=== PATIENT | female | born 1975 | race Hispanic/Latino ===

== ENCOUNTER → 2017-12-13 | Outpatient (CLI) | payer OTHER | LOC: M RAD 14:42 | DX: Z12.31 Encounter for screening mammogram for malignant neoplasm of breast (principal) ==

== ENCOUNTER 2019-04-23 13:00 | Emergency (ER) | payer OTHER ==
[~2019-04-23] VITALS: Ht 167.6 cm; Wt 93.9 kg
[2019-04-23] MEDS ORDERED: LEVO175T2 (13:14)
[2019-04-23] MEDS ORDERED: HYDR1CRE9 (13:14)
[2019-04-23] MEDS ORDERED: [UNRECOGNIZED DRUG - REMARK] (13:14)
[2019-04-23] MEDS ORDERED: ACET1TAB55 PO (13:14)
[2019-04-23] MEDS ORDERED: FLUTISP (13:14)
[2019-04-23] MEDS ORDERED: NS 1,000 ML IV ONE (14:15)
[2019-04-23] MEDS ORDERED: ONDANSETRON 4MG/2ML VIAL (J2405) IV ONE (14:15)
[2019-04-23] MEDS ORDERED: KETOROLAC 30 MG/ML VIAL (J1885) IV ONE (14:15)
[2019-04-23 14:41] LABS: BASO # 0.1 10^3/uL (0.0-0.2); BASO % 0.6 % (0.0-1.0); EOS # 0.1 10^3/uL (0.0-0.50); EOS % 1.1 % (0.0-3.0); HEMOGLOBIN 7.4 g/dl (12.0-15.5); LYMPH # 2.2 10^3/uL (1.5-4.5); LYMPH % 21.6 % (24.0-44.0); MEAN CORPUSCULAR HEMOGLOBIN 16.4 pg (27.0-33.0); MEAN CORPUSCULAR HGB CONC 27.4 g/dl (32.0-36.5); MEAN CORPUSCULAR VOLUME 59.7 fl (80.0-96.0); MONO # 0.8 10^3/uL (0.0-0.8); MONO % 7.4 % (0.0-5.0); NEUTROPHILS # 7.2 10^3/uL (1.8-7.7); NEUTROPHILS % 68.9 % (36.0-66.0); PLATELET COUNT, AUTOMATED 543 10^3/uL (150-450); RED BLOOD COUNT 4.52 10^6/uL (4.00-5.40); WHITE BLOOD COUNT 10.4 10^3/uL (4.0-10.0)
[2019-04-23 15:06] LABS: ALBUMIN 3.5 GM/DL (3.2-5.2); ALT/SGPT 17 U/L (12-78); BILIRUBIN,DIRECT 0.2 MG/DL (0.0-0.2); BILIRUBIN,TOTAL 0.5 MG/DL (0.2-1.0); BLOOD UREA NITROGEN 8 MG/DL (7-18); CALCIUM LEVEL 8.7 MG/DL (8.5-10.1); CARBON DIOXIDE LEVEL 24 MEQ/L (21-32); CHLORIDE LEVEL 109 MEQ/L (98-107); CREATININE FOR GFR 0.79 MG/DL (0.55-1.30); GLOMERULAR FILTRATION RATE > 60.0 (>58); GLUCOSE, FASTING 92 MG/DL (70-100); LIPASE 154 U/L (73-393); POTASSIUM SERUM 3.7 MEQ/L (3.5-5.1); SODIUM LEVEL 140 MEQ/L (136-145); TOTAL PROTEIN 7.8 GM/DL (6.4-8.2)
[2019-04-23] MEDS ORDERED: ISOVUE-370 76% 100ML VIAL (Q9967) As Ordered ONE (15:09)
--- NOTE | 2019-04-23 15:40 | REP ---
Head CT without contrast: History: Sudden onset headache. Comparison study: No comparison study. CT findings: Bone window settings demonstrate an intact bony calvarium. There is no evidence of skull fracture or incidental bony calvarial lesion. The visualized paranasal sinuses appear clear. No intraorbital abnormality is seen. On soft tissue window setting images; the lateral, third, and fourth ventricles are normal in size and position. Jackson-white differentiation pattern is normal above and below the tentorium. There are is no evidence of intracranial hemorrhage. No mass, edema, infarction, or midline shift is seen. No extra-axial fluid collection is appreciated. Impression: Negative noncontrast head CT. Electronically Signed by Sai Dela Cruz MD 04/23/2019 03:38 P
--- NOTE | 2019-04-23 15:48 | REP ---
CT of the abdomen and pelvis with IV contrast, without bowel contrast: There are no comparisons. The visualized lung pal are unremarkable. The hepatic parenchyma, gallbladder, pancreas and spleen are normal size and unremarkable. The adrenals are unremarkable. The kidneys are unremarkable. The abdominal aorta is unremarkable. There is no periaortic adenopathy or mass. The bowel and mesentery are unremarkable. Pelvis: The appendix is unremarkable. There is a right adnexal 1.8 cm follicle. Left adnexa is unremarkable. The The uterus and bladder are unremarkable. There is no adenopathy or ascites. Impression: There is a 1.8 cm right adnexal follicle. Otherwise, essentially negative CT of the abdomen and pelvis. Electronically Signed by Ric Woods MD 04/23/2019 03:39 P
[2019-04-23 17:07] LABS: IRON (FE) 10 UG/DL (50-170); PERCENT SATURATION 2.1 % (13.2-45.0); TOTAL IRON BINDING CAPACITY 473 UG/DL (250-450)
[2019-04-23] MEDS ORDERED: FOLITAB10 PO (17:27)
[2019-04-23] MEDS ORDERED: CIPR-249 PO (17:28)
[2019-04-23 17:47] VITALS: BP 111/59
== END 2019-04-23 17:50 | disposition home or self-care (01) ==
LOC: M ED 13:00
DX: N30.00 Acute cystitis without hematuria (principal); N83.00 Follicular cyst of ovary, unspecified side; D50.9 Iron deficiency anemia, unspecified; R19.7 Diarrhea, unspecified; E03.9 Hypothyroidism, unspecified; Z79.899 Other long term (current) drug therapy
CPT/HCPCS: 70450; 74177; 80048; 80076; 81001; 83550; 83690; 84702; 85025; 87088; 87186; 96374; 96375; 99284; J1885; J2405; Q9967

== ENCOUNTER → 2019-09-25 | Outpatient (CLI) | payer OTHER ==
[~2019-09-25] MED LIST: ACET1TAB55 PO; CIPR-249 PO; FERR324T2 PO; FLUTISP; FOLI0.4T PO; FOLITAB10 PO; HYDR1CRE9; IBUP80TA PO; LEVO175T2 PO; PERCOCET PO; VITA-158 PO; [UNRECOGNIZED DRUG - REMARK]
[2019-09-25 12:22] LABS: HEMATOCRIT 32.7 % (36.0-47.0); HEMOGLOBIN 9.6 g/dl (12.0-15.5); MEAN CORPUSCULAR HEMOGLOBIN 19.8 pg (27.0-33.0); MEAN CORPUSCULAR HGB CONC 29.4 g/dl (32.0-36.5); MEAN CORPUSCULAR VOLUME 67.4 fl (80.0-96.0); PLATELET COUNT, AUTOMATED 480 10^3/uL (150-450); RED BLOOD COUNT 4.85 10^6/uL (4.00-5.40); WHITE BLOOD COUNT 6.1 10^3/uL (4.0-10.0)
== END ==
LOC: M LAB 10:53
PROVIDERS: ATTEND Obstetrics & Gynecology
DX: Z01.818 Encounter for other preprocedural examination (principal); E03.9 Hypothyroidism, unspecified; D64.9 Anemia, unspecified

== ENCOUNTER 2019-09-29 05:50 | Inpatient (IN) | payer OTHER ==
[2019-09-29] VITALS (7 sets, daily range): BP systolic 111–137; BP diastolic 54–66
[~2019-09-29] VITALS: Ht 165.1 cm; Wt 94.3 kg
[~2019-09-29 05:50] MED LIST changes: -IBUP80TA PO; -PERCOCET PO
[2019-09-29] MEDS ORDERED: ceFAZolin SOD 2 GM in IV 1 EA IV ONE (06:00)
[2019-09-29] MEDS ORDERED: LIDOCAINE 1% MDV 20ML VIAL SQ PRN (06:00)
[2019-09-29] MEDS ORDERED: LR 1,000 ML IV ONE (06:00)
[2019-09-29 06:19] LABS: HEMATOCRIT 35.2 % (36.0-47.0); HEMOGLOBIN 9.9 g/dl (12.0-15.5); MEAN CORPUSCULAR HEMOGLOBIN 19.2 pg (27.0-33.0); MEAN CORPUSCULAR HGB CONC 28.1 g/dl (32.0-36.5); MEAN CORPUSCULAR VOLUME 68.3 fl (80.0-96.0); PLATELET COUNT, AUTOMATED 436 10^3/uL (150-450); RED BLOOD COUNT 5.15 10^6/uL (4.00-5.40); WHITE BLOOD COUNT 5.1 10^3/uL (4.0-10.0)
[2019-09-29 06:43] LABS: BLOOD UREA NITROGEN 12 MG/DL (7-18); CARBON DIOXIDE LEVEL 24 MEQ/L (21-32); CHLORIDE LEVEL 111 MEQ/L (98-107); CREATININE FOR GFR 0.71 MG/DL (0.55-1.30); GLOMERULAR FILTRATION RATE > 60.0 (>58); GLUCOSE, FASTING 113 MG/DL (70-100); HCG, SERUM QUALITATIVE NEGATIVE (NEGATIVE); POTASSIUM SERUM 4.3 MEQ/L (3.5-5.1); SODIUM LEVEL 140 MEQ/L (136-145)
[2019-09-29] MEDS ORDERED: BUPIVACAINE HCL 0.5% 30 ML VIAL As Ordered ONE (07:09)
[2019-09-29] MEDS ORDERED: FLUORESCEIN 10% (100MG/ML) 5 ML VIAL As Ordered ONE (07:09)
[2019-09-29] MEDS ORDERED: ONDANSETRON 4MG/2ML VIAL (J2405) As Ordered ONE ×2 (08:09→11:31)
[2019-09-29] MEDS ORDERED: HYDROmorphone HCL 2 MG/ML 1ML VIAL (J1170) As Ordered ONE (08:09)
[2019-09-29] MEDS ORDERED: ROCURONIUM BROMIDE 50 MG/5 ML VIAL As Ordered ONE ×2 (08:09→08:23)
[2019-09-29] MEDS ORDERED: fentaNYL 100 MCG/2 ML INJECTION (J3010) As Ordered ONE (08:09)
[2019-09-29] MEDS ORDERED: dexameTHASONE 4 MG/ML 1ML VIAL (J1100) As Ordered ONE (08:09)
[2019-09-29] MEDS ORDERED: MIDAZOLAM INJ 2 MG/2 ML VIAL (J2250) As Ordered ONE (08:09)
[2019-09-29] MEDS ORDERED: PROPOFOL 200 MG/20 ML VIAL As Ordered ONE (08:09)
[2019-09-29] MEDS ORDERED: ACETAMINOPHEN 1000MG 100ML IV BTL (OFIRMEV) (J0131 PER 10MG) As Ordered ONE (08:09)
[2019-09-29] MEDS ORDERED: KETOROLAC 60 MG/2 ML VIAL (J1885) As Ordered ONE (08:09)
[2019-09-29] MEDS ORDERED: LIDOCAINE 2% INJ 100 MG/5 ML SDV (FOR ANES.) As Ordered ONE (08:09)
[2019-09-29] MEDS ORDERED: SUGAMMADEX SODIUM 500 MG/5 ML VIAL (BRIDION) As Ordered ONE (08:09)
[2019-09-29] MEDS ORDERED: ePHEDrine SULFATE 25 MG/5 ML(5MG/ML) SYRINGE As Ordered ONE (08:19)
[2019-09-29] MEDS ORDERED: LR 1,000 ML IV SCH ×2 (11:05→12:00)
[2019-09-29] MEDS ORDERED: PERCOCET 5MG/325MG TAB PO PRN ×2 (11:15)
[2019-09-29] MEDS ORDERED: PROMETHAZINE 25 MG TAB PO PRN (11:15)
[2019-09-29] MEDS ORDERED: HYDROMORPHONE HCL 0.5 MG/ 0.5 ML SYRINGE (J1170 PER 1) As Ordered ONE ×2 (11:31→11:44)
[2019-09-29] MEDS: PERCOCET 5MG/325MG TAB PO PRN ×2 (11:35→12:05)
[2019-09-29] MEDS: HYDROMORPHONE HCL 0.5 MG/ 0.5 ML SYRINGE (J1170 PER 1) IV PRN ×3 (11:35→11:50)
[2019-09-29] MEDS ORDERED: fentaNYL 100 MCG/2 ML INJECTION (J3010) IV PRN (12:00)
[2019-09-29] MEDS ORDERED: ONDANSETRON 4MG/2ML VIAL (J2405) IV PRN (12:00)
[2019-09-29] MEDS ORDERED: METOCLOPRAMIDE INJ 10MG/2ML VIAL (J2765) IV PRN (12:00)
[2019-09-29] MEDS: KETOROLAC 30 MG/ML VIAL (J1885) IV SCH ×2 (15:16→21:29)
--- NOTE | 2019-09-29 16:28 | IPNPDOC ---
Text Note Date of Service The patient was seen on 09/29/19. NOTE Patient seen this evening. Monika is POD#0 s/p uncomplicated TLH, BS, cystoscopy from this AM. Monika reports feeling well this evening. She denies any pain. She ate a regul ar diet and denies any nausea or vomiting. Vitals - VSS, afebrile, normotensive, non tachycardic General - AAOX3, sitting up in bed, pleasant and conversant, NAD Abdomen - Soft, nondistended. Laparoscopic port sites well appearing. Minimal tenderness to palpation throughout abdomen. Extremities - No edema, SCDs in place UO - Appropriate, Cary bag at bedside with ~400ml of fluorescein stained urine within Monika is doing well. Can encourage ambulation this evening and remove cary if meeting all criteria. Regular diet. Continue scheduled toradol. CBC in AM. Anticipate discharge home tomorrow. All patient questions answered. Willy Jean DO VS,Fishbone, I+O VS, Fishbone, I+O Laboratory Tests 09/29/19 06:05 Vital Signs Date Time Temp Pulse Resp B/P (MAP) Pulse Ox O2 Delivery O2 Flow Rate FiO2 09/29/19 15:30 97.4 67 16 120/60 (80) 97 Room Air 09/29/19 12:05 2.0 WILLY JEAN DO Sep 29, 2019 16:28
[2019-09-30] VITALS: BP 118/54
[2019-09-30] MEDS: KETOROLAC 30 MG/ML VIAL (J1885) IV SCH (03:38)
[2019-09-30 04:00] VITALS: BP 110/59
[2019-09-30 07:33] LABS: BASO % 0.2 % (0.0-1.0); EOS # 0.1 10^3/uL (0.0-0.5); EOS % 1.5 % (0.0-3.0); HEMATOCRIT 29.5 % (36.0-47.0); HEMOGLOBIN 8.4 g/dl (12.0-15.5); LYMPH # 2.1 10^3/uL (1.5-5.0); MEAN CORPUSCULAR HEMOGLOBIN 19.7 pg (27.0-33.0); MEAN CORPUSCULAR HGB CONC 28.5 g/dl (32.0-36.5); MEAN CORPUSCULAR VOLUME 69.1 fl (80.0-96.0); MONO # 0.8 10^3/uL (0.0-0.8); MONO % 9.2 % (0.0-5.0); NEUTROPHILS # 5.3 10^3/uL (1.5-8.5); NEUTROPHILS % 63.7 % (36.0-66.0); PLATELET COUNT, AUTOMATED 397 10^3/uL (150-450); RED BLOOD COUNT 4.27 10^6/uL (4.00-5.40); WHITE BLOOD COUNT 8.4 10^3/uL (4.0-10.0)
[2019-09-30] MEDS ORDERED: PERCOCET PO (07:51)
[2019-09-30] MEDS ORDERED: IBUP80TA PO (07:51)
[2019-09-30 08:00] VITALS: BP 118/59
--- NOTE | 2019-09-30 08:02 | DS.PDOC ---
Discharge Summary General Date of Admission Sep 29, 2019 at 05:50 Date of Discharge Sep 30, 2019 Discharge Summary HOSPITAL COURSE: Monika Sandoval was admitted to [facility] on 29Sep2019 for a planned hysterectomy for severe AUB leading to anemia. She underwent an uncomplicated total laparoscopic hysterectomy, bilateral salpingectomy, and cystoscopy on that same day. Her post operative recovery course was unremarkable. On her day of discharge she met all appropriate discharge criteria. She was ambulating, voiding on her own, tolerating a regular diet, and her pain was well controlled with PO pain medications. DISCHARGE MEDICATIONS: Please see below. ALLERGIES: Please see below. PHYSICAL EXAMINATION ON DISCHARGE: VITAL SIGNS: Please see below. GENERAL: AAOX3, sitting up in bed, pleasant and conversant, NAD ABDOMINAL EXAMINATION: Abdomen soft, nondistended. Laparoscopic port sites well appearing. Dermabond in place. No tenderness to palpation. +Bowel sounds in all 4 quadrants. EXTREMITIES: No edema PSYCHIATRIC EXAMINATION: Affect appropriate LABORATORY DATA: Please see below. ACTIVITY: Pelvic rest for 6 weeks. DIET: Regular DISCHARGE PLAN: Discharge home DISPOSITION: Discharge home on 30Sep2019. DISCHARGE INSTRUCTIONS: Postoperatively, you should expect significant abdominal soreness following a laparoscopic surgery. We will provide oral pain medications, typically an anti- inflammatory (motrin) and an oral narcotic (percocet or norco). It is recommended to take the anti-inflammatory medication three times daily, using the narcotic medication as needed in addition. Sometimes, narcotic medications can cause constipation, and we recommend using a stool softener, drinking plenty of water, increasing the fiber in your diet, and drinking prune juice if constipation becomes a significant issue. Dressings: Your laparoscopic incisions are typically closed with either absorbable stitches (covered with a gauze and plastic dressing which can be removed on the day fol lowing surgery) or with Dermabond (a medical adhesive). You may shower on the day following surgery. It is normal to have some pain at the incisions that is sharp. Signs of infection at the incision include pain, redness, swelling and drainage of pus from the incision. Precautions: Please contact the [facility] or the Emergency Room after hours for any of the following symptoms, * Fever (temperature > 101F) * Significant pain not controlled with oral pain medications * Significant nausea and vomiting with inability to tolerate any food or medication * Significant redness of the incisions or drainage from the incisions Return to normal: You should be able to resume normal activities and exercise within 6 weeks. You may notice more soreness with abdominal exercises, and this is to be expected. Avoid heavy lifting greater than 10 pounds until 6 weeks after surgery. Nothing in the vagina (no tampons, intercourse, or douching) for 6wks. You may resume sexual activity 8 weeks after surgery when cleared by your surgeon. ITEMS TO FOLLOWUP ON ON OUTPATIENT: 1. Post appointment on 14Oct2019 DISCHARGE CONDITION: Stable. TIME SPENT ON DISCHARGE: Greater than 20 minutes. Willy Jean DO Vital Signs/I&Os Vital Signs Date Time Temp Pulse Resp B/P (MAP) Pulse Ox O2 Delivery O2 Flow Rate FiO2 09/30/19 04:00 97.4 63 18 110/59 (76) 98 Room Air 09/29/19 12:05 2.0 I&O- Last 24 Hours up to 6 AM 09/30/19 06:00 Intake Total 5822.5 ml Output Total 4600 ml Balance 1222.5 ml Laboratory Data Labs 24H Laboratory Tests 2 09/30/19 07:22: Immature Granulocyte % (Auto) 0.4, Neutrophils (%) (Auto) 63.7, Lymphocytes (%) (Auto) 25.0, Monocytes (%) (Auto) 9.2H, Eosinophils (%) (Auto) 1.5, Basophils (%) (Auto) 0.2, Neutrophils # (Auto) 5.3, Lymphocytes # (Auto) 2.1, Monocytes # (Auto) 0.8, Eosinophils # (Auto) 0.1, Basophils # (Auto) 0.0, Nucleated Red Blood Cells % (auto) 0.0 CBC/BMP Laboratory Tests 09/30/19 07:22 Discharge Medications Scheduled Ascorbic Acid (Vitamin C) 500 Mg Tablet, 1 TAB PO DAILY, (Reported) Ferrous Sulfate (Ferrous Sulfate) 324 Mg Tablet.dr, 324 MG PO DAILY, (Reported) Folic Acid (Folic Acid) 0.4 Mg Tablet, 400 MCG PO DAILY, (Reported) Ibuprofen (Ibuprofen) 800 Mg Tablet, 800 MG PO Q8H Levothyroxine Sodium (Levothyroxine Sodium) 175 Mcg Tablet, 175 MCG PO DAILY, (Reported) Scheduled PRN Oxycodone/Acetaminophen (Oxycodone-Acetaminophen 5-325) 1 Each Tablet, 1 TAB PO Q4H PRN for MILD/MODERATE PAIN (PS 1-7) Allergies Coded Allergies: No Known Allergies (Unverified , 09/22/19) WILLY JEAN DO Sep 30, 2019 08:02
[2019-09-30] MEDS ORDERED: IBUPROFEN 800 MG TAB PO SCH (11:00)
--- NOTE | 2019-09-30 15:37 | RO ---
DATE OF PROCEDURE: 09/29/2019 PREPROCEDURE DIAGNOSIS: Severe abnormal uterine bleeding causing anemia. POSTPROCEDURE DIAGNOSES: Severe abnormal uterine bleeding causing anemia. Globular-appearing uterus consistent in appearance with adenomyosis. PROCEDURE: Total laparoscopic hysterectomy, bilateral salpingectomy and cystoscopy. SURGEON: Dr. Keaton Jean. INCOME AUDITOR: Dr. Frantz German ANESTHESIA: General. FLUIDS: 800 mL lactated Ringers. URINE OUTPUT: 1200 mL via Cary catheter. ESTIMATED BLOOD LOSS: 100 mL. COMPLICATIONS: None. ANTIBIOTICS: 2 grams Ancef before case started. OPERATIVE FINDINGS: A globular-appearing uterus was noted consistent in appearance with adenomyosis. Normal ovaries and fallopian tubes bilaterally. Normal gastric curve. Normal liver. Cystoscopy revealed an intact bladder with no sutures, lesions or defects and brisk efflux of fluorescein-stained urine from each ureteral orifice. DESCRIPTION OF PROCEDURE: The risks, benefits, indications and alternatives of the procedure were reviewed with the patient and informed consent was obtained. The patient was taken to the operating room where general anesthesia was obtained without difficulty. The patient was then placed in the lithotomy position utilizing Rick stirrups. Hers arms were gently tucked to the sides with padding. An exam under anesthesia was then performed which was significant for a 10-week size anteverted uterus with good lateral mobility but minimal to no descent. A surgical time-out was then performed and the patient's identity and planned procedure were verified with the operative team. A cary catheter was placed first to drain the bladder. A sterile speculum was then inserted into the patient's vagina and the cervix was visualized. An 0 Vicryl stitch was then used to grasp the anterior lip of the cervix. The cervix was then gently dilated. The V-care uterine manipulator was then placed into the uterus as a means to manipulate the uterus. The speculum was then removed from the patient's vagina. Gloves were then exchanged and attention was the turned to the patient's abdomen where a 5 mm skin incision was then made in the inferior aspect of the umbilicus. 5 mm trocar and sleeve were then carefully introduced into the peritoneal cavity under direct visualization at a 90-degree angle, while tenting up the abdominal wall. Intraperitoneal placement was confirmed under direct visualization and entry pressure was noted to be less than 5 mmHg. A pneumoperitoneum was then obtained with several liters of CO2 gas. Upon entering the peritoneal cavity, the structures immediately below the incision were inspected and found to be free of injury. A survey of the patients' abdomen and pelvis was notable for normal appearing liver and gastric curve. The uterus was enlarged and globular in appearance consistent with adenomyosis. Right and left fallopian tubes were normal in appearance. The ovaries were normal bilaterally. The ureters were identified bilaterally and noted to be well away from the operative field. At this point, two additional trocars were then inserted into the abdomen both 5 mm in size. One was inserted in the right lower quadrant and one was in the left lower quadrant and they were placed under direct visualization after skin incisions were made with the scalpel. Stabilizing the uterus with the V-care manipulator, the LigaSure was then used to clamp, cut and ligate the round ligaments bilaterally. The anterior broad ligament was then incised along the bladder reflection bilaterally and the bladder was dissected off the lower uterine segment until the endopelvic fascia was visualized. The ureters again were identified bilaterally coursing well away from the operative field. Attention was then turned to the patient's fallopian tubes. The left fallopian tube was then identified and follows out to the fimbriated end. The fallopian tube was then dissected from the underlying mesosalpinx with the LigaSure electrocautery device and then amputated at the connection to the uterine cornua. An identical procedure was then performed on the patient's right fallopian tube and the amputated fallopian tubes were then placed in the posterior cul-de-sac. The uterine ovarian ligaments were then ligated as close as possible to the uterine corpus using the LigaSure. The pedicles were inspected and hemostasis was assured. The uterine arteries were then identified bilaterally, skeletonized and ligated using LigaSure electrocautery. The uterosacral ligaments and cardinal ligaments were then transected bilaterally using the LigaSure. Careful hemostasis was insured throughout the process. A colpotomy was then made with the Monopolar L-hook device. The colpotomy was made circumferentially around the cervix using the V-care uterine manipulator as a guide. The entire cervix and uterus were then successfully amputated from the vagina. Excellent hemostasis was assured throughout this process. Attention was then turned to patient's vagina. The uterus and cervix were delivered through the vagina along with the fallopian tubes. The specimens were sent off the field. The vaginal cuff was then closed from below using 0 Vicryl sutures in a running fashion. An additional two [id number] sutures of 0 Vicryl suture were then used to achieve excellent hemostasis at the vaginal cuff. The patient's Cary catheter was then removed and the cystoscope was primed. The cystoscope was then advanced into the patient's bladder. The bladder was then distended with sterile saline and a systematic examination of the bladder was performed. The bladder was noted to be intact with no lesions, defects, or sutures. Both ureteral orifices were seen bilaterally and brisk efflux of fluorescein stained urine was seen from each opening. The cystoscope was then removed and the Cary catheter was replaced. Gloves and gown were then exchanged and a repeat laparoscopy was performed. The patient's pelvis was inspected and copiously irrigated. All pedicles were noted to be hemostatic. The vaginal cuff was inspected and there was mild oozing at the cuff in the midline which was controlled with LigaSure electrocautery. Excellent hemostasis was achieved. The cuff was then irrigated again to good effect. Zhang was then placed along the vaginal cuff and hemostasis was assured. Again, careful inspection of all operative sites along all pedicles and the vaginal cuff revealed continued hemostasis. The pneumoperitoneum was then released and all CO2 was removed from the patient's abdomen. The trocars were removed under direct visualization and there was no bleeding seen from the trocar sites. The skin incisions were then closed with #4-0 Monocryl suture and covered with Dermabond. A manual exam was then performed of the vagina which demonstrated excellent suspension and elevation. A vaginal sweep was performed and confirmed no retained foreign objects remained in the vagina. The vaginal cuff was irrigated to good effect and hemostasis was assured at the cuff. At the completion of the case the sponge, instrument, and needle counts were correct times three. The patient tolerated the procedure well and was taken to the postanesthesia care unit (PACU) in stable condition. SOLITARIO
== END 2019-09-30 11:25 | disposition home or self-care (01) | DRG 743 ==
LOC: M OR 05:50 → M PED 12:30
PROVIDERS: ADMIT Obstetrics & Gynecology; ATTEND Obstetrics & Gynecology
PROC: 0UT74ZZ Resection of Bilateral Fallopian Tubes, Percutaneous Endoscopic Approach (ICD-10-PCS; 2019-09-29)
PROC: 0TJB8ZZ Inspection of Bladder, Via Natural or Artificial Opening Endoscopic (ICD-10-PCS; 2019-09-29)
PROC: 0UT94ZZ Resection of Uterus, Percutaneous Endoscopic Approach (ICD-10-PCS; principal; 2019-09-29 07:30)
PROC: 0UTC4ZZ Resection of Cervix, Percutaneous Endoscopic Approach (ICD-10-PCS; 2019-09-29 07:30)
DX: N93.9 Abnormal uterine and vaginal bleeding, unspecified (principal); D50.0 Iron deficiency anemia secondary to blood loss (chronic); N80.0 Endometriosis of uterus; E07.9 Disorder of thyroid, unspecified; N94.6 Dysmenorrhea, unspecified; Z79.899 Other long term (current) drug therapy

== ENCOUNTER → 2019-12-12 | Outpatient (REF) | payer OTHER ==
[~2019-12-12] MED LIST changes: +IBUP80TA PO; +PERCOCET PO
== END ==
LOC: M LAB REF 16:27
PROVIDERS: ATTEND Physician Assistant Medical
DX: R50.9 Fever, unspecified (principal)

== ENCOUNTER → 2021-07-28 | Outpatient (CLI) | payer OTHER ==
[~2021-07-28] MED LIST changes: -FOLI0.4T PO; +FOLI0.4T5 PO; -HYDR1CRE9; +PROHANCE 279.3MG/ML 15ML VIAL As Ordered ONE; +PROHANCE 279.3MG/ML 5ML VIAL As Ordered ONE; +SFHHYD1CR
--- NOTE | 2021-07-31 08:22 | REP ---
INDICATION: PVD. COMPARISON: None. TECHNIQUE: Pre and post-contrast enhanced MR angiography of the aorta and lower extremity runoff arterial vasculatures performed. 35 mL of intravenous ProHance is administered for the contrast portion of the study. Maximum intensity projection and source images are reviewed. FINDINGS: The suprarenal and infrarenal abdominal aorta normal in caliber and widely patent. Singular nonstenotic proximal renal arteries are observed. Celiac axis and superior mesenteric artery are unremarkable. The inferior mesenteric artery is not seen. Common iliac arteries are widely patent bilaterally. Internal iliac arteries are patent bilaterally. The external iliac artery show no evidence of stenosis or occlusion. Common femoral arteries, superficial femoral arteries, and profundal femoral arteries are patent bilaterally. Popliteal arteries are of good caliber bilaterally. No significant atherosclerosis is seen. The anterior tibial, peroneal, and posterior tibial arteries are patent bilaterally into the distal calf. Intact posterior tibial arteries are seen bilaterally crossing the ankle. The anterior tibial arteries are seen to the level of the ankle and the peroneal arteries are visualized well into the distal calf. IMPRESSION: No large vessel occlusion or stenosis seen. No evidence of significant atherosclerosis. <Electronically signed by Jer Dela Cruz > 07/31/21 [id number]
== END ==
LOC: M RAD 16:43
PROVIDERS: ATTEND Physician Assistant
DX: I73.9 Peripheral vascular disease, unspecified (principal)
CPT/HCPCS: A9576; C8902; C8914

== ENCOUNTER → 2022-01-17 | Outpatient (CLI) | payer OTHER ==
[~2022-01-17] MED LIST changes: -PROHANCE 279.3MG/ML 15ML VIAL As Ordered ONE; -PROHANCE 279.3MG/ML 5ML VIAL As Ordered ONE
== END ==
LOC: M PLAIMG 11:00
PROVIDERS: ATTEND Internal Medicine Rheumatology
DX: R76.8 Other specified abnormal immunological findings in serum (principal); M79.89 Other specified soft tissue disorders

== ENCOUNTER → 2022-01-17 | Outpatient (REF) | payer OTHER ==
[2022-01-17 13:16] LABS: TOTAL PROTEIN,RANDOM URINE 10.8 MG/DL (0.0-12.0)
[2022-01-17 13:22] LABS: APPEARANCE, URINE HAZY (CLEAR); BACTERIA, URINE AUTO 1+ (NEGATIVE); BILIRUBIN, URINE AUTO NEGATIVE (NEGATIVE); BLOOD, URINE BLOOD 1+ (NEGATIVE); COLOR, URINE YELLOW (YELLOW); GLUCOSE, URINE (UA) AUTO NEGATIVE (NEGATIVE); KETONE, URINE AUTO NEGATIVE (NEGATIVE); LEUKOCYTE ESTERASE, URINE AUTO NEGATIVE (NEGATIVE); MUCUS, URINE SMALL (NEGATIVE); NITRITE, URINE AUTO POSITIVE (NEGATIVE); PROTEIN, URINE AUTO NEGATIVE (NEGATIVE); RBC, URINE AUTO 0 /HPF (0-3); SPECIFIC GRAVITY URINE AUTO 1.021 (1.002-1.035); SQUAMOUS EPITHELIAL CELL UR AU 1 /HPF (0-6); UROBILINOGEN, URINE AUTO 0.2 mg/dL (0.0-2.0); WBC, URINE AUTO 1 /HPF (0-3)
[2022-01-17 13:30] LABS: BASO # 0.1 10^3/uL (0.0-0.2); BASO % 0.9 % (0.0-1.0); EOS # 0.4 10^3/uL (0.0-0.5); EOS % 5.5 % (0.0-3.0); HEMATOCRIT 41.5 % (36.0-47.0); HEMOGLOBIN 13.6 g/dl (12.0-15.5); LYMPH # 1.8 10^3/uL (1.5-5.0); LYMPH % 27.6 % (24.0-44.0); MEAN CORPUSCULAR HEMOGLOBIN 29.2 pg (27.0-33.0); MEAN CORPUSCULAR HGB CONC 32.8 g/dl (32.0-36.5); MEAN CORPUSCULAR VOLUME 89.1 fl (80.0-96.0); MONO # 0.7 10^3/uL (0.0-0.8); MONO % 10.9 % (2.0-8.0); NEUTROPHILS # 3.5 10^3/uL (1.5-8.5); NEUTROPHILS % 54.5 % (36.0-66.0); PLATELET COUNT, AUTOMATED 349 10^3/uL (150-450); RED BLOOD COUNT 4.66 10^6/uL (4.00-5.40); WHITE BLOOD COUNT 6.4 10^3/uL (4.0-10.0)
[2022-01-17 13:50] LABS: ERYTHROCYTE SEDIMENTATION RATE 24 mm/hr (0-20)
[2022-01-17 13:58] LABS: ALBUMIN 3.4 GM/DL (3.2-5.2); ALT/SGPT 41 U/L (12-78); BILIRUBIN,TOTAL 0.2 MG/DL (0.2-1.0); BLOOD UREA NITROGEN 18 MG/DL (7-18); C REACTIVE PROTEIN QUANTITATIV 2.15 MG/DL (0.00-0.30); CALCIUM LEVEL 8.7 MG/DL (8.5-10.1); CARBON DIOXIDE LEVEL 26 MEQ/L (21-32); CHLORIDE LEVEL 109 MEQ/L (98-107); COMPLEMENT C3 158 MG/DL (90-180); COMPLEMENT C4 29 MG/DL (10-40); CREATININE FOR GFR 0.68 MG/DL (0.55-1.30); GLOMERULAR FILTRATION RATE > 60.0 (>58); GLUCOSE, FASTING 122 MG/DL (70-100); POTASSIUM SERUM 4.5 MEQ/L (3.5-5.1); SODIUM LEVEL 140 MEQ/L (136-145); TOTAL PROTEIN 7.1 GM/DL (6.4-8.2)
== END ==
LOC: M SFHCRHEU 09:12
PROVIDERS: ATTEND Internal Medicine Rheumatology
DX: M19.041 Primary osteoarthritis, right hand (principal); M19.042 Primary osteoarthritis, left hand; R76.8 Other specified abnormal immunological findings in serum; M79.89 Other specified soft tissue disorders; N83.291 Other ovarian cyst, right side
CPT/HCPCS: 36415; 73130; 73630; 80053; 81001; 82570; 84156; 85025; 85613; 85652; 85732; 86140; 86160; G0463

== ENCOUNTER → 2023-01-09 | Outpatient (CLI) | payer OTHER | LOC: M WHC 07:23 | PROVIDERS: ATTEND Student in an Organized Health Care Education/Training Program | DX: Z12.31 Encounter for screening mammogram for malignant neoplasm of breast (principal) ==